=== PATIENT | male | born 1950 | race Native Hawaiian/Other Pacific Islander ===

== ENCOUNTER 2016-09-20 15:00 | Outpatient (CLI) | payer OTHER ==
[~2016-09-20 15:00] MED LIST: ASA LO-DOSE81 MG PO; CARV3.12 PO; CETI10TA PO; DIGOX250 MCG PO; LISI5TAB10 PO; LOMOTIL2.5 MG PO; PROM25TA52 PO; SENOKOT S1 TAB PO; ZANTAC300 MG PO
== END 2016-09-20 19:16 | disposition home or self-care (01) ==
LOC: RAD 15:00
DX: J44.1 Chronic obstructive pulmonary disease with (acute) exacerbation (principal)